=== PATIENT | female | born 1945 | race Caucasian/White ===

== ENCOUNTER 2017-07-04 | Observation (INO) | payer MEDICARE, OTHER ==
[~2017-07-04] VITALS: Ht 157.5 cm; Wt 91.6 kg
[2017-07-04] MEDS ORDERED: KETOROLAC 30 MG/1 ML IVPush ONE (00:30)
[2017-07-04] MEDS ORDERED: ONDANSETRON 2MG/ML, 2ML IVPush ONE (00:30)
[2017-07-04] MEDS ORDERED: SODIUM CHLORIDE 0.9% 1,000ML IV ONE (00:30)
[2017-07-04] MEDS ORDERED: SODIUM CHLORIDE FLUSH 10ML SYR IVF ONE (00:30)
[2017-07-04] MEDS ORDERED: KETOROLAC 30 MG/1 ML ONE (00:38)
[2017-07-04] MEDS ORDERED: MORPHINE SULFATE 4 MG/ML, 1ML ONE ×2 (00:38→01:57)
[2017-07-04] MEDS ORDERED: ONDANSETRON 2MG/ML, 2ML ONE ×2 (00:38→04:23)
[2017-07-04 00:45] LABS: HEMATOCRIT 42.2 % (34.6-47.8); HEMOGLOBIN 13.9 g/dL (11.7-16.4); WHITE BLOOD COUNT 8.2 x10^3/uL (3.4-10)
[2017-07-04 00:55] LABS: ASPARTATE AMINO TRANSFERASE 13 U/L (15-37); BLOOD UREA NITROGEN 18 mg/dL (7-18)
[2017-07-04] MEDS: MORPHINE SULFATE 4 MG/ML, 1ML IVPush PRN ×2 (00:59→02:00)
[2017-07-04] MEDS ORDERED: LOSA25TA5 PO (01:06)
[2017-07-04] MEDS ORDERED: METF10002 PO (01:06)
[2017-07-04] MEDS ORDERED: SIMV5TAB5 PO (01:07)
[2017-07-04 01:35] LABS: PATH.CAST-FLAG NOT PRESENT; SPERM-FLAG NOT PRESENT; SRC-FLAG NOT PRESENT; XTAL-FLAG NOT PRESENT; YLC-FLAG NOT PRESENT
[2017-07-04] MEDS ORDERED: CEFTRIAXONE PMX 1GM/50ML 50 ML IV ONE (02:00)
[2017-07-04] MEDS ORDERED: CEFTRIAXONE PMX 1GM/50ML 50 ML ONE (02:23)
[2017-07-04] MEDS ORDERED: FENTANYL PF 250 MCG/5ML ONE (04:04)
[2017-07-04] MEDS ORDERED: SUCCINYLCHOLINE 20 MG/ML, 10ML ONE (04:23)
[2017-07-04] MEDS ORDERED: DEXAMETHASONE 4 MG/ML, 1ML ONE (04:23)
[2017-07-04] MEDS ORDERED: ROCURONIUM 10 MG/ML ONE (04:23)
[2017-07-04] MEDS ORDERED: PROPOFOL 10 MG/ML, 20ML ONE (04:23)
[2017-07-04] MEDS ORDERED: PHENYLEPHRINE 10 MG/ML ONE (04:23)
[2017-07-04] MEDS ORDERED: POTASSIUM CHLORIDE 20 MEQ in SODIUM CHLORIDE 0.45% 1,000 ML IV SCH (05:18)
[2017-07-04] MEDS ORDERED: ONDANSETRON 2MG/ML, 2ML IV PRN (05:30)
[2017-07-04] MEDS ORDERED: ACETAMINOPHEN 325 MG TABLET PO PRN (05:30)
[2017-07-04] MEDS ORDERED: morphine SULFATE 10 MG/ML, 1ML IV PRN (05:30)
[2017-07-04] MEDS ORDERED: CEFOXITIN PMX 1GM/50ML 50 ML IVPB SCH (05:30)
[2017-07-04] MEDS ORDERED: OXYcodone 5 MG/5 ML ORAL.SOL UDC PO PRN (05:30)
[2017-07-04] MEDS ORDERED: FENTANYL PF 100 MCG/2ML IV PRN (05:30)
[2017-07-04] MEDS ORDERED: OPIUM/BELLADONNA SUPP.RECT 16.2-30 MG PR PRN (05:30)
[2017-07-04] MEDS ORDERED: PROMETHAZINE 25 MG/ML, 1ML IV PRN (05:30)
[2017-07-04] MEDS ORDERED: ALBUTEROL SULFATE 2.5 MG/3 ML NPPB PRN (05:30)
[2017-07-04] MEDS ORDERED: TEMAZEPAM 15 MG CAPSULE PO PRN (05:30)
[2017-07-04] MEDS ORDERED: ALBUTEROL SULFATE 2.5 MG/3 ML ONE (05:41)
[2017-07-04] MEDS: INSULIN ASPART 100 UNITS/ML, PEN SQ-INSULIN SCH ×4 (07:00→21:23)
[2017-07-04 09:30] VITALS: BP 101/64
[2017-07-04] MEDS: HYDROcodone/APAP 5/325 TABLET PO PRN ×2 (10:11→15:29)
[2017-07-04] MEDS ORDERED: CEFOXITIN 1,000 MG in SODIUM CHLORIDE 0.9% 50 ML IVPB SCH (13:00)
[2017-07-04 14:00] VITALS: BP 104/67
[2017-07-04 19:37] VITALS: BP 117/68
[2017-07-04] MEDS ORDERED: AMLODIPINE 5 MG TABLET PO ONE (21:00)
[2017-07-04] MEDS ORDERED: SIMVASTATIN 5 MG TABLET PO SCH (21:00)
[2017-07-04] MEDS ORDERED: LOSARTAN 50MG TABLET PO SCH (21:00)
[2017-07-04] MEDS ORDERED: ASPI-515 PO (21:56)
[2017-07-04] MEDS ORDERED: AMLO5TAB4 PO (21:56)
[2017-07-05 00:20] VITALS: BP 123/68
[2017-07-05 03:55] VITALS: BP 123/71
[2017-07-05 07:50] VITALS: BP 125/79
[2017-07-05] MEDS: INSULIN ASPART 100 UNITS/ML, PEN SQ-INSULIN SCH (08:46)
[2017-07-05] MEDS: HYDROcodone/APAP 5/325 TABLET PO PRN (08:53)
[2017-07-05 10:26] VITALS: BP 124/71
[2017-07-05] MEDS ORDERED: HYDR-3240 PO (11:32)
[2017-07-05] MEDS ORDERED: CIPR500T87 PO (11:32)
== END 2017-07-05 11:50 | disposition home or self-care (01) ==
LOC: ED 03:50 → EDIP 03:52 → INTOOBSV 03:52 → 4NOR 06:08 → DCLOUNGE 07-05 11:35
PROVIDERS: ADMIT Urology; ATTEND Urology
DX: N13.6 Pyonephrosis (principal); E11.9 Type 2 diabetes mellitus without complications; I25.10 Atherosclerotic heart disease of native coronary artery without angina pectoris; E78.5 Hyperlipidemia, unspecified; I10 Essential (primary) hypertension; J45.909 Unspecified asthma, uncomplicated; N81.89 Other female genital prolapse; K57.92 Diverticulitis of intestine, part unspecified, without perforation or abscess without bleeding; A09 Infectious gastroenteritis and colitis, unspecified; Z83.3 Family history of diabetes mellitus; Z87.442 Personal history of urinary calculi
CPT/HCPCS: 36415; 52356; 74176; 80053; 81001; 82962; 83690; 85025; 87077; 87086; 87186; 88300; 94640; 96365; 96367; 96372; 96375; 96376; 99285; C2617; G0378; J0330; J0694; J0696; J1100; J1815; J1885; J2370; J2405; J2704; J3010; J3480; J7030; J7613

== ENCOUNTER 2019-06-12 09:51 | Emergency (ER) | payer MEDICARE ==
[~2019-06-12] VITALS: Ht 157.5 cm; Wt 85.0 kg
[2019-06-12 10:03] VITALS: BP 154/74
== END 2019-06-12 12:06 | disposition home or self-care (01) ==
LOC: ED 12:00
DX: S39.012A Strain of muscle, fascia and tendon of lower back, initial encounter (principal); N30.00 Acute cystitis without hematuria; E78.00 Pure hypercholesterolemia, unspecified; I10 Essential (primary) hypertension; E11.9 Type 2 diabetes mellitus without complications; X58.XXXA Exposure to other specified factors, initial encounter; Y93.89 Activity, other specified; Y92.89 Other specified places as the place of occurrence of the external cause; Y99.8 Other external cause status
CPT/HCPCS: 36415; 80048; 81001; 82040; 85025; 87086; 96372; 99283; J1885